=== PATIENT | male | born 1965 | race Two or more races ===

== ENCOUNTER 2017-08-01 14:18 | Day surgery (SDC) | payer BC ==
[2017-08-01 15:07] LABS: ABSOLUTE EOSINOPHILS # (AUTO) 0.1 10^3/uL (0.0-0.6); ABSOLUTE LYMPHOCYTES (AUTO) 1.9 10^3/uL (0.5-4.7); ABSOLUTE MONOCYTES (AUTO) 0.5 10^3/uL (0.1-1.4); ABSOLUTE NEUT (AUTO) 2.9 10^3/uL (1.7-8.2); BASOPHILS % (AUTO) 0.8 % (0-2); EOSINOPHILS % (AUTO) 2.1 % (0-6); HEMATOCRIT 49.7 % (37.9-51.0); HEMOGLOBIN 16.5 g/dL (13.5-17.0); HGB HCT DIFFERENCE -0.2; MEAN CORPUSCULAR HEMOGLOBIN 31.4 pg (27.0-33.4); MEAN CORPUSCULAR HGB CONC 33.3 g/dL (32.0-36.0); MEAN CORPUSCULAR VOLUME 94 fl (80-97); MONOCYTES % (AUTO) 8.4 % (3-13); RED BLOOD COUNT 5.27 10^6/uL (4.35-5.55); RED CELL DISTRIBUTION WIDTH 13.6 % (11.5-14.0); SEGMENTED NEUTROPHILS % (AUTO) 53.7 % (42-78); WHITE BLOOD COUNT 5.5 10^3/uL (4.0-10.5)
[2017-08-01] MEDS ORDERED: FLUMAZENIL INJ 0.5 MG/5 ML VIAL ONE (15:13)
[2017-08-01] MEDS ORDERED: NALOXONE HCL INJ/PF 0.4 MG/1 ML SDV ONE (15:13)
[2017-08-01] MEDS ORDERED: EPINEPHRINE INJ 1 MG/10 ML DISP.SYRIN ONE (15:14)
[2017-08-01] MEDS ORDERED: GLUCAGON,HUMAN RECOMB 1 MG INJ ONE (15:14)
[2017-08-01 15:25] LABS: ALANINE AMINOTRANSFERASE 82 U/L (21-72); ALBUMIN 4.7 g/dL (3.5-5.0); ALKALINE PHOSPHATASE 72 U/L (38-126); ANION GAP 11 (5-19); ASPARTATE AMINO TRANSFERASE 48 U/L (17-59); BILIRUBIN,DIRECT 0.3 mg/dL (0.0-0.4); BILIRUBIN,TOTAL 0.8 mg/dL (0.2-1.3); BLOOD UREA NITROGEN 11 mg/dL (7-20); CALCIUM 9.8 mg/dL (8.4-10.2); CARBON DIOXIDE 29 mmol/L (22-30); CHLORIDE 103 mmol/L (98-107); CREATININE RESULT 0.82 mg/dL (0.52-1.25); GLUCOSE 100 mg/dL (75-110); POTASSIUM 4.3 mmol/L (3.6-5.0); SODIUM 143.1 mmol/L (137-145); TOTAL PROTEIN 7.9 g/dL (6.3-8.2)
[2017-08-01] MEDS: MIDAZOLAM 2 MG/2 ML INJ ONE ×3 (15:51→16:10)
[2017-08-01] MEDS: FENTANYL CITRATE INJ/PF 100 MCG/2 ML AMPUL ONE ×2 (15:53→16:14)
--- NOTE | 2017-08-01 17:06 | Operative Report ---
Operative Report DATE OF SURGERY: 08/01/17 Operative Report: Pre-op diagnosis: Epigastric pain and change in bowel habit Post-op diagnosis: 1. Antral gastritis 2. Transverse colon and rectal polyps 3. Single diverticulum in the ascending colon Surgery: Upper endoscopy with biopsy and Colonoscopy with polypectomy Medications: Versed 4mg, Fentanyl 150mcg IV push Tissue removed: Antral biopsy and colon polyps Procedure: After informed consent obtained from patient, patient's pharynx was sprayed with Hurricane and conscious sedation was achieved. The upper endoscope was then inserted into the esophagus under direct vision and advanced into the stomach and further into the duodenum. Detailed examination of the duodenum, stomach and the esophagus was then performed. A digital rectal examination was performed and this was unremarkable. The colonoscope was inserted into the rectum and advanced to the cecum. The appendiceal orifice and the terminal ileum were both identified. The mucosa was examined into details as the colonoscope was slowly pulled out of the patient. The endoscope was retroflexed in the rectum. Patient tolerated the procedure well. Findings Esophagus: Normal Stomach: Mild erythema in the gastric antrum. Duodenum: Normal Terminal ileum: Normal Cecum: Normal Ascending colon: Single diverticulum in the proximal ascending colon Transverse colon: Two 5 mm polyps removed with the cold snare Descending colon: Normal Sigmoid colon: Normal Rectum: 3 mm polyp removed with a cold snare and internal hemorrhoids Plan: Await pathology, fiber supplements every day and repeat colonoscopy in 5 years. Use PPI for 6 weeks for gastritis OPERATION: .
--- NOTE | 2017-08-01 17:07 | PDOC DISCHARGE SUMMARY ---
Discharge Summary (SDC) - Discharge Final Diagnosis: Gastritis, transverse colon and rectal polyps Date of Surgery: 08/01/17 Condition: Stable Forms: Sedation D/C Instructions, Discharge POC-Surgical Service Treatment or Instructions: Omeprazole 20 mg daily for 6 weeks Referrals: TANNER RICH MD [ACTIVE STAFF] - (Call tomorrow to schedule follow up appointment, office currently closed at this time.) Discharge Diet: As Tolerated Respiratory Treatments at Home: Deep Breathing/Coughing Discharge Activity: Balance Activity w/Rest, No Driving Home Care Assistance: Provided by Family Report the Following to Your Physician Immediately: Shortness of Breath, Nausea , Vomiting, Increase in Pain, Fever over 101 Degrees, Unusual Bleeding, IV Site Infection Signs
[2017-08-01 17:29] VITALS: BP 103/81
== END 2017-08-01 17:23 | disposition home or self-care (01) ==
LOC: END 14:18
PROVIDERS: ATTEND Internal Medicine Gastroenterology
PROC: 0DBP8ZX Excision of Rectum, Via Natural or Artificial Opening Endoscopic, Diagnostic (ICD-10-PCS; 2017-08-01)
PROC: 0DB68ZX Excision of Stomach, Via Natural or Artificial Opening Endoscopic, Diagnostic (ICD-10-PCS; principal; 2017-08-01 15:30)
PROC: 0DBK8ZX Excision of Ascending Colon, Via Natural or Artificial Opening Endoscopic, Diagnostic (ICD-10-PCS; 2017-08-01 15:30)
PROC: 0DBL8ZX Excision of Transverse Colon, Via Natural or Artificial Opening Endoscopic, Diagnostic (ICD-10-PCS; 2017-08-01 15:30)
DX: K57.30 Diverticulosis of large intestine without perforation or abscess without bleeding (principal); D12.2 Benign neoplasm of ascending colon; D12.3 Benign neoplasm of transverse colon; K62.1 Rectal polyp; K29.70 Gastritis, unspecified, without bleeding; K64.8 Other hemorrhoids; Z88.0 Allergy status to penicillin
CPT/HCPCS: 43239; 45380; 45385; 36415; 85025; 80076; 80048; 88305 ×2; J2250; J3010; J0171; J1610; J2310; J3490